=== PATIENT | male | born 1970 | race African-American/Black ===

== ENCOUNTER 2020-03-25 07:06 | Inpatient (IN) | payer MEDICARE ==
[~2020-03-25] VITALS: Ht 182.9 cm; Wt 100.5 kg
[2020-03-25] MEDS ORDERED: NITROGLYCERIN 2% OINT 1 GM PKT TOP ONE (07:30)
[2020-03-25] MEDS ORDERED: CARVEDILOL 12.5 MG TAB PO ONE (07:30)
[2020-03-25 07:42] LABS: BASOPHILS # (AUTO) 0.1 (0.0-0.1); BASOPHILS % 0.8 % (0.0-1.0); EOSINOPHILS # (AUTO) 0.2 (0.0-0.4); EOSINOPHILS % 3.6 % (0.0-6.0); HEMOGLOBIN 11.5 g/dL (14.0-18.0); LYMPHOCYTES # (AUTO) 1.3 (1.0-3.2); LYMPHOCYTES % 19.5 % (18.0-39.1); MEAN CORPUSCULAR HEMOGLOBIN 26.3 pg (28-32); MEAN CORPUSCULAR HGB CONC 31.1 g/dL (31-35); MEAN CORPUSCULAR VOLUME 84.5 fL (81-99); MONOCYTES # (AUTO) 0.5 (0.2-0.8); MONOCYTES % 7.8 % (4.4-11.3); NEUTROPHILS # (AUTO) 4.5 (2.1-6.9); NEUTROPHILS % 68.1 % (38.7-80.0); PLATELET COUNT 206 x10e3/uL (140-360); RED BLOOD COUNT 4.38 x10e6/uL (4.3-5.7); RED CELL DISTRIBUTION WIDTH 13.4 % (11.7-14.4)
[2020-03-25] MEDS ORDERED: ONDANSETRON HCL INJ 2MG/ML 2ML 2 MG/ML VIAL IV PRN (07:45)
[2020-03-25 07:54] LABS: INR 0.96; PARTIAL THROMBOPLASTIN TIME 30.9 seconds (23.8-35.5); PROTHROMBIN TIME 13.3 seconds (11.9-14.5)
[2020-03-25 08:01] LABS: ALBUMIN 2.7 g/dL (3.5-5.0); ALBUMIN/GLOBULIN RATIO 0.8 (0.8-2.0); ANION GAP 25.7 mmol/L (8-16); CREATININE, SERUM 21.28 mg/dL (0.72-1.25); POTASSIUM 4.7 mmol/L (3.5-5.1)
[2020-03-25 08:07] LABS: CREATINE KINASE MB 9.9 ng/mL (0-5.0)
[2020-03-25 08:08] LABS: CALCIUM 6.6 mg/dL (8.4-10.2)
--- NOTE | 2020-03-25 08:32 | Emergency Department Note ---
History of Present Illnes History of Present Illness Chief Complaint: Respiratory History of Present Illness This is a 49 year old male PATIENT IN FROM HOME WITH COMPLAINTS OF SHORTNESS OF BREATH AND DRY COUGH STARTING LAST NIGHT; STATES IS HERE FROM [place] AND IS A DIALYSIS PATIENT. PATIENT HAS BEEN DOING MANUAL PERITONEAL DIALYSIS BUT IT IS NOT WORKING (SAYS IN PAST WHEN HE DOES MANUAL DWELLS INSTEAD OF BEING ON MACHINE, HE GETS VOLUME OVERLOADED). PATIENT ALERT AND ORIENTED, RESP EVEN AND NONLABORED, APPEARS IN NO DISTRESS, DENIES CHEST PAIN. 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 Any updates have been documented here. Past Medical History Recent Fever: No Clinical Suspicion of Infectio: No New/Unexplained Change in Ment: No Past Medical History: Hypertension, Diabetes, Cancer, ESRD, Hemodyalisis, Hyperlipedemia Other Medical History: RENAL CANCER Past Surgical History: Cataract Removal Other Surgery: LEFT NEPHRECTOMY RUE FISTULA Social History Smoking Cessation: Never Smoker Counseling Performed: No Alcohol Use: None Any Illegal Drug Use: No TB Exposure/Symptoms: No Physically hurt or threatened: No Family History Family history of heart diseas: No Other Any Pre-Existing Lines (PICC,: Yes Review of Systems Review of Systems Constitutional: Reports no symptoms; Denies chills, Denies fever EENTM: Reports no symptoms Cardiovascular: Reports no symptoms Respiratory: Reports as per HPI Gastrointestinal: Reports no symptoms Genitourinary: Reports no symptoms Musculoskeletal: Reports no symptoms Integumentary: Reports no symptoms Neurological: Reports no symptoms Psychological: Reports no symptoms Endocrine: Reports no symptoms Hematological/Lymphatic: Reports no symptoms Physical Exam Related Data Allergies: Coded Allergies: No Known Allergies (Unverified , 03/25/20) Triage Vital Signs Vital Signs Date Time Temp Pulse Resp B/P (MAP) Pulse Ox O2 Delivery O2 Flow Rate FiO2 03/25/20 07:09 98.6 94 24 199/112 97 Room Air Vital signs reviewed: Yes Physical Exam CONSTITUTIONAL Constitutional: Present well-developed, Present well-nourished HENT HENT: Present normocephalic, Present atraumatic, Present oropharynx clear/moist, Present nose normal HENT L/R: Present left ext ear normal, Present right ext ear normal EYES Eyes: Reports PERRL, Reports conjunctivae normal NECK Neck: Present ROM normal PULMONARY Pulmonary: Present respiratory distress (MILD TACHYPNEA), Present rales (BIBASILAR) CARDIOVASCULAR Cardiovascular: Present regular rhythm, Present heart sounds normal, Present capillary refill normal, Present normal rate, Present LLE edema (2+), Present RLE edema (2+) GASTROINTESTINAL Abdominal: Present soft, Present nontender, Present bowel sounds normal GENITOURINARY Genitourinary: Present exam deferred SKIN Skin: Present warm, Present dry MUSCULOSKELETAL Musculoskeletal: Present ROM normal NEUROLOGICAL Neurological: Present alert, Present oriented x 3, Present no gross motor or sensory deficits PSYCHOLOGICAL Psychological: Present mood/affect normal, Present judgement normal Exam - additional comments RIGHT UPPER ARM HD FISTULA, GOOD THRILL & BRUIT Results Laboratory Result Diagram: 03/25/20 0720 03/25/20 0720 Laboratory Laboratory Tests Test 03/25/20 07:40 03/25/20 07:20 White Blood Count 6.65 x10e3/uL (4.8-10.8) Red Blood Count 4.38 x10e6/uL (4.3-5.7) Hemoglobin 11.5 g/dL (14.0-18.0) Hematocrit 37.0 % (38.2-49.6) Mean Corpuscular Volume 84.5 fL (81-99) Mean Corpuscular Hemoglobin 26.3 pg (28-32) Mean Corpuscular Hemoglobin Concent 31.1 g/dL (31-35) Red Cell Distribution Width 13.4 % (11.7-14.4) Platelet Count 206 x10e3/uL (140-360) Neutrophils (%) (Auto) 68.1 % (38.7-80.0) Lymphocytes (%) (Auto) 19.5 % (18.0-39.1) Monocytes (%) (Auto) 7.8 % (4.4-11.3) Eosinophils (%) (Auto) 3.6 % (0.0-6.0) Basophils (%) (Auto) 0.8 % (0.0-1.0) Neutrophils # (Auto) 4.5 (2.1-6.9) Lymphocytes # (Auto) 1.3 (1.0-3.2) Monocytes # (Auto) 0.5 (0.2-0.8) Eosinophils # (Auto) 0.2 (0.0-0.4) Basophils # (Auto) 0.1 (0.0-0.1) Absolute Immature Granulocyte (auto 0.01 x10e3/uL (0-0.1) Prothrombin Time 13.3 seconds (11.9-14.5) Prothromb Time International Ratio 0.96 Activated Partial Thromboplast Time 30.9 seconds (23.8-35.5) Sodium Level 139 mmol/L (136-145) Potassium Level 4.7 mmol/L (3.5-5.1) Chloride Level 100 mmol/L (98-107) Carbon Dioxide Level 18 mmol/L (22-29) Anion Gap 25.7 mmol/L (8-16) Blood Urea Nitrogen 79 mg/dL (7-26) Creatinine 21.28 mg/dL (0.72-1.25) Estimat Glomerular Filtration Rate 3 ML/MIN (60-) BUN/Creatinine Ratio 4 (6-25) Glucose Level 139 mg/dL (74-118) Calcium Level 6.6 mg/dL (8.4-10.2) Total Bilirubin 0.3 mg/dL (0.2-1.2) Aspartate Amino Transf (AST/SGOT) 13 IU/L (5-34) Alanine Aminotransferase (ALT/SGPT) 20 IU/L (0-55) Alkaline Phosphatase 57 IU/L (40-150) Creatine Kinase 924 IU/L (30-200) Creatine Kinase MB 9.90 ng/mL (0-5.0) Troponin I 0.054 ng/mL (0-0.300) Total Protein 6.3 g/dL (6.5-8.1) Albumin 2.7 g/dL (3.5-5.0) Globulin 3.6 g/dL (2.3-3.5) Albumin/Globulin Ratio 0.8 (0.8-2.0) Lab results reviewed: Yes Imaging Imaging results reviewed: Yes Procedures 12 Lead ECG Interpretation ECG Interpretation : ECG: ECG 1 Delivery Truck Driver: Interpreted by ED physician Date: Mar 25, 2020 Time: 07:23 Rhythm: sinus rhythm Rate: normal (88) QRS axis: normal ST segments normal: Yes T waves flattening: I, aVL Clinical Impression: abnormal ECG Additional Comments PROLONGED QT Assessment & Plan Medical Decision Making MDM ESRD ON PD DOING MANUAL DWELLS DUE TO BEING DISPLACED FROM [place] FOR HURRICANE JIAN PRESENTS WITH SOB, LIKELY VOLUME OVERLOADED - CHECK CBC, CHEM, ECG, CARDIAC ENZYMES, CXR, COVID SWAB - R/O STEMI/NSTEMI, CHF, VOLUME OVERLOAD, PNEUMONIA, COVID19 Reassessment Reassessment ADMIT TO ON-CALL DR REESE, SPOKE WITH BIBIANA - WILL DO HD TODAY Assessment & Plan Final Impression: (1) Volume overload (2) Dyspnea (3) ESRD (end stage renal disease) on dialysis Depart Disposition: ADMITTED Last Vital Signs Date Time Temp Pulse Resp B/P (MAP) Pulse Ox O2 Delivery O2 Flow Rate FiO2 03/25/20 08:07 178/111 03/25/20 08:07 100 03/25/20 07:09 98.6 24 97 Room Air Medications in the ED Carvedilol 12.5 mg ONCE ONCE PO Last administered on 03/25/20 08:07; Admin Dose 12.5 MG; Start 03/25/20 at 07:30; Stop 03/25/20 at 07:31; Status DC Nitroglycerin 1 gm ONCE ONCE TOP Last administered on 03/25/20at 08:07; Admin Dose 1 GM; Start 03/25/20 at 07:30; Stop 03/25/20 at 07:31; Status DC Ondansetron HCl 4 mg Q4H PRN IV NAUSEA AND VOMITING; Start 03/25/20 at 07:45; Stop 04/24/20 at 07:44 JEREMY BRAVO MD Mar 25, 2020 08:32
--- NOTE | 2020-03-25 09:19 | Diagnostic Imaging Report ---
EXAMINATION: CHEST SINGLE (PORTABLE) INDICATION: SOB LIKELY VOLUME OVERLOAD COMPARISON: None FINDINGS: TUBES and LINES: None. LUNGS: Normal lung volumes. There is diffuse prominent interstitial lung markings. No focal consolidation. PLEURA: No pleural effusion or pneumothorax. HEART AND MEDIASTINUM: The heart is mildly enlarged. Mediastinal contours otherwise within normal limits. BONES AND SOFT TISSUES: No acute osseous lesion. Soft tissues are unremarkable. UPPER ABDOMEN: No free air under the diaphragm. IMPRESSION: Cardiomegaly with interstitial pulmonary edema. No focal consolidation. Signed by: Darlene Gresham MD on 03/25/2020 9:16 AM
[2020-03-25 10:30] VITALS: BP 167/95
--- NOTE | 2020-03-25 10:30 | NUR ---
PATIENT RECEIVED FROM ER PER WHEEL CHAIR. ALERT AND VERBALLY RESPONSIVE. ABLE TO TRANSFER SELF TO BED. DENIES PAIN AT THIS TIME. SKIN WARM AND DRY TO TOUCH, RESPIRATION EVEN AND UNLABORED. ABDOMEN SOFT AND NON DISTENDED. TELEMETRY BOX [address] BED IN LOWER POSITION AND LOCKED. CALL LIGHT AT REACH, INSTRUCTED TO CALL FOR ASSISTANCE NEEDED.
[2020-03-25 11:49] VITALS: BP 167/95
[2020-03-25] MEDS ORDERED: CARVEDILOL12.5 MG PO (12:33)
[2020-03-25] MEDS: CARVEDILOL 12.5 MG TAB PO SCH ×2 (13:13→17:21)
--- NOTE | 2020-03-25 13:14 | NUR ---
PATIENT ON DIALYSIS, CONSENT SIGNED. IN BED RESTING WITH NO S/S OF DISTRESS.
--- NOTE | 2020-03-25 15:30 | NUR ---
PATIENT NOTED WITH ELEVATED B/P. MD NOTIFIED, NEW ORDER RECEIVED.
[2020-03-25 15:31] LABS: CREATINE KINASE MB 8.5 ng/mL (0-5.0)
[2020-03-25 16:00] VITALS: BP 153/93
--- NOTE | 2020-03-25 16:01 | NUR ---
Renal Consult HPI - 49 yo M with PMH of ESRD on PD admitted through ER for concerns of volume overload. he has mild SOB and and legs edema. patient says he has problems whenever he is started on manual exchange in his PD ROS - negative unless mentioned in HPI Vitals - BP 178/111 mmhg. HR 100/min, T 98, RR 20 Exam - Gen - not in acute distress HENT - no LAD Chest - CTAB heart - RRR Ext - race edema labs - labs from today reviewed A & P - - ESRD on daily PD - Hypertension - volume overload plan - - continue PD as prescription - will start on home dose of antihypertensive. will up titrate Coreg as needed
[2020-03-25] MEDS ORDERED: DOCUSATE SODIUM 100 MG CAP PO PRN (17:45)
[2020-03-25] MEDS ORDERED: MELATONIN 5 MG TABLET PO PRN (17:45)
[2020-03-25] MEDS ORDERED: TRAMADOL HCL 50 MG TAB PO PRN (17:45)
--- NOTE | 2020-03-25 19:00 | NUR ---
RECEIVED PATIENT IN BEDSIDE SHIFT REPORT. PATIENT RESTING IN BED AT THIS TIME. PERITONEAL DIALYSIS NURSE JUST STARTED PD. PATIENT TOLERATING WELL. COMPLAINTS OF A HEADACHE, WILL PROVIDE MEDICATION. NO S&S OF DISTRESS NOTED. BED LOCKED IN LOWEST POSITION, SIDE RAILS UPX2, CALL LIGHT IN REACH.
[2020-03-25 20:08] VITALS: BP 160/94
[2020-03-25] MEDS: FAMOTIDINE 20 MG/2 ML VIAL IV SCH (20:54)
[2020-03-25] MEDS: ACETAMINOPHEN 325 MG TAB PO PRN (20:54)
[2020-03-25 21:31] LABS: CREATINE KINASE MB 10.2 ng/mL (0-5.0)
[2020-03-25 21:39] VITALS: BP 160/94
[2020-03-25] MEDS: HYDRALAZINE HCL 20 MG/ML VIAL IV PRN (23:40)
[2020-03-26] VITALS (9 sets, daily range): BP systolic 165–192; BP diastolic 90–108
[2020-03-26] MEDS: HEPARIN SOD (PORCINE) 5,000 UNIT/ML VIAL SC SCH ×3 (00:20→21:16)
--- NOTE | 2020-03-26 03:09 | NUR ---
PATIENT CALLED STATING HE WAS HAVING TROUBLE CATCHING HIS BREATH. SPO2 @ 93% ON RA WHILE LAYING ALMOST FLAT. SAT PATIENT UP TO 45 DEGREES, SPO2 INCREASED TO 95%. APPLIED 2L O2 VIA NC, SPO2 INCREASED TO 98-99%. PATIENT BREATHING EASIER AT THIS TIME. WILL CONTINUE TO MONITOR.
[2020-03-26] MEDS: HYDRALAZINE HCL 20 MG/ML VIAL IV PRN ×2 (05:30→23:33)
[2020-03-26 06:18] LABS: BASOPHILS % 0.6 % (0.0-1.0); EOSINOPHILS # (AUTO) 0.1 (0.0-0.4); EOSINOPHILS % 1.4 % (0.0-6.0); HEMATOCRIT 34.3 % (38.2-49.6); HEMOGLOBIN 11.2 g/dL (14.0-18.0); LYMPHOCYTES # (AUTO) 0.6 (1.0-3.2); LYMPHOCYTES % 8.4 % (18.0-39.1); MEAN CORPUSCULAR HEMOGLOBIN 27.6 pg (28-32); MEAN CORPUSCULAR HGB CONC 32.7 g/dL (31-35); MEAN CORPUSCULAR VOLUME 84.5 fL (81-99); MONOCYTES # (AUTO) 0.5 (0.2-0.8); MONOCYTES % 7.3 % (4.4-11.3); NEUTROPHILS # (AUTO) 5.7 (2.1-6.9); PLATELET COUNT 187 x10e3/uL (140-360); RED BLOOD COUNT 4.06 x10e6/uL (4.3-5.7); RED CELL DISTRIBUTION WIDTH 13.4 % (11.7-14.4)
[2020-03-26 06:48] LABS: ALBUMIN 2.7 g/dL (3.5-5.0); ALBUMIN/GLOBULIN RATIO 0.7 (0.8-2.0); ANION GAP 26.2 mmol/L (8-16); CREATININE, SERUM 19.58 mg/dL (0.72-1.25); POTASSIUM 4.2 mmol/L (3.5-5.1)
[2020-03-26 06:52] LABS: CALCIUM 6.8 mg/dL (8.4-10.2)
[2020-03-26 07:09] LABS: CREATINE KINASE MB 9.3 ng/mL (0-5.0)
[2020-03-26] MEDS: FAMOTIDINE 20 MG/2 ML VIAL IV SCH ×2 (08:12→21:14)
[2020-03-26] MEDS: CARVEDILOL 12.5 MG TAB PO SCH ×2 (08:13→16:34)
[2020-03-26] MEDS: ONDANSETRON HCL INJ 2MG/ML 2ML 2 MG/ML VIAL IV PRN ×2 (08:29→16:59)
[2020-03-26] MEDS ORDERED: AMLODIPINE BESY10 MG PO (08:39)
[2020-03-26] MEDS ORDERED: SEVELAMER CARB800 MG PO (08:39)
[2020-03-26] MEDS ORDERED: ATORVASTATIN CA20 MG PO (08:39)
[2020-03-26] MEDS ORDERED: OMEPRAZOLE40 MG PO (08:39)
[2020-03-26] MEDS ORDERED: CALCIUM CARBONATE 500 MG CHEWABLE TABS PO ONE ×2 (09:30→17:15)
[2020-03-26] MEDS: CALCITRIOL 0.25 MCG CAP PO SCH (09:54)
[2020-03-26] MEDS: ACETAMINOPHEN 325 MG TAB PO PRN (12:36)
--- NOTE | 2020-03-26 13:02 | NUR ---
Renal Progress Note - Subjective - Chart reviewed, events noted. felt some discomfort last night while breathing but denies that it was SOB. Vitals - BP 184/108 mmhg. HR 94/min, T 99.7, RR 20 Exam - Gen - not in acute distress HENT - no LAD Chest - CTAB heart - RRR Ext - trace edema labs - labs from today reviewed A & P - - ESRD on daily PD - Hypertension - uncontrolled - volume overload plan - - continue PD as prescription. No change from prescription from yesterday - will start on home dose of antihypertensive. will up titrate Coreg as needed - starting on Losartan today
[2020-03-26] MEDS ORDERED: LOSARTAN POTASSIUM 25 MG TAB PO SCH (13:15)
[2020-03-26] MEDS: CALCIUM CARBONATE 500 MG CHEWABLE TABS PO SCH (16:34)
--- NOTE | 2020-03-26 17:30 | NUR ---
Notified Dr. Lucia of pt elevated temp. No new orders received at this time.
[2020-03-26] MEDS ORDERED: DEXTROSE 50% SYRINGE 50 ML IV PRN (18:00)
--- NOTE | 2020-03-26 19:15 | NUR ---
RECEIVED BEDSIDE SHIFT REPORT FROM MORNING NURSE. PT ALERT AND ORIENTED, LYING IN BED HOB 45 DEGREES. DENIES PAIN AT THIS TIME. PD CATHETER IN PLACE AND DIALYZING INFORMED TO CALL IF HE NEEDS NEEDS ASSISTANCE, CALL LIGHT WITHIN REACH.
--- NOTE | 2020-03-26 19:23 | Progress Note ---
DATE: 03/26/2020 Medicine Progress Note SUBJECTIVE: The patient reportedly is breathing much better after peritoneal dialysis. 1.6 L removed from PD. PHYSICAL EXAMINATION: VITAL SIGNS: Temperature is 99.7, pulse 91, respiratory rate is 20, blood pressure was 165/90, and pulse ox 100% on room air. GENERAL: Not in acute distress. Alert and oriented x3. Cooperative on examination. HEENT: Head; normocephalic, atraumatic. Eyes; pupils are equal, round, and reactive to light bilaterally. Extraocular movements intact bilaterally. Throat; no evidence of erythema or exudates in the posterior pharynx. Has poor dentition. NECK: Supple. Good range of motion. PULMONARY: Clear to auscultation bilaterally. No wheezing, no rales, no rhonchi, no crackles appreciated. CARDIOVASCULAR: Positive S1 and S2. No murmurs, rubs, or gallops appreciated. ABDOMEN: Soft, nondistended, and nontender to palpation. Bowel sounds present. MUSCULOSKELETAL: Strength is 5/5 throughout. No evidence of any muscle deficits on examination. No weakness appreciated. NEUROLOGIC: Cranial nerve II through XII grossly intact. No evidence of any neurological deficits on exam. SKIN: Intact. Warm to touch. Good cap refill. PSYCHIATRIC: Normal affect and mood. EXTREMITIES: No edema. Good range of motion throughout. LABORATORY DATA: Labs show white count 6.9, hemoglobin 11, hematocrit 34, and platelets of 187. His chemistry; sodium 136, potassium 4.2, chloride 98, bicarb 16, anion gap of 26, BUN 75, and creatinine 19.5. His glucose is 266. Calcium is 6.8. Troponins were negative. Albumin 2.7. Coronavirus not detected. IMAGING STUDIES: Showed some cardiomegaly, interstitial pulmonary edema. No focal consolidation. IMPRESSION: 1. End-stage renal disease, on peritoneal dialysis. 2. Hypertension. 3. Shortness of breath secondary to pulmonary edema. 4. Secondary hyperparathyroidism. PLAN: At this time, the patient received PD last night and will receive it today as well. Still reports some shortness of breath. His home medications were resumed. I will go ahead and increase the losartan to 100 mg daily due to his blood pressure being elevated. He will be on heparin for DVT prophylaxis. Renal diet. We will continue with Coreg and add increased dose of losartan for his blood pressure. Plan of care discussed with the patient and nursing staff. As for his hypocalcemia, it is being managed by Nephrology. MD FREEMAN Fink/MELLISA /[id number]
[2020-03-26] MEDS: ATORVASTATIN 20 MG TAB PO SCH (21:14)
[2020-03-26] MEDS: INSULIN LISPRO 100 UNIT/1 ML 3ML VIAL SQ SCH (21:16)
[2020-03-27] VITALS (8 sets, daily range): BP systolic 164–187; BP diastolic 88–94
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
[2020-03-27] MEDS: ACETAMINOPHEN 325 MG TAB PO PRN ×2 (03:10→12:15)
--- NOTE | 2020-03-27 05:05 | NUR ---
Spoke with Dr. Lucia regarding Pt's change in health condition, elevated BP 187/92, temp 100.9, and shaking. Pt c/o SHIN previously resolving. Dr. Israel ordered BCx2, UC, consult Dr. Mckinney, and start IV Cefepime 1g every 24hrs.
[2020-03-27] MEDS: CEFEPIME 1GM/NS 0.9% 50 ML 50 ML IV SCH (06:10)
[2020-03-27] MEDS ORDERED: SODIUM CHLORIDE 0.9% 250ML 250 ML ONE (06:16)
--- NOTE | 2020-03-27 06:28 | NUR ---
CONSULT LEFT WITH [facility] FOR DR. LORD.
[2020-03-27 07:01] LABS: BASOPHILS % 0.5 % (0.0-1.0); EOSINOPHILS # (AUTO) 0.1 (0.0-0.4); EOSINOPHILS % 0.9 % (0.0-6.0); HEMATOCRIT 32.5 % (38.2-49.6); HEMOGLOBIN 10.2 g/dL (14.0-18.0); LYMPHOCYTES # (AUTO) 0.9 (1.0-3.2); MEAN CORPUSCULAR HEMOGLOBIN 26.2 pg (28-32); MEAN CORPUSCULAR HGB CONC 31.4 g/dL (31-35); MEAN CORPUSCULAR VOLUME 83.5 fL (81-99); MONOCYTES # (AUTO) 0.7 (0.2-0.8); NEUTROPHILS # (AUTO) 5.7 (2.1-6.9); NEUTROPHILS % 77.1 % (38.7-80.0); PLATELET COUNT 190 x10e3/uL (140-360); RED BLOOD COUNT 3.89 x10e6/uL (4.3-5.7); RED CELL DISTRIBUTION WIDTH 13.7 % (11.7-14.4)
--- NOTE | 2020-03-27 07:10 | NUR ---
PATIENT IS AWAKE, ALERT, AND IN STABLE CONDITION WITH NO S/S OF RESPIRATORY DISTRESS. NO PAIN VOICED. PATIENT RECEIVED PERITONEAL DIALYSIS- ACCESS TO LLQ. LIMB ALERT TO LEFT UPPER EXTREMITY D/T FISTULA. TELEMETRY APPLIED. 02 APPLIED AT 2L NC. CALL LIGHT IS WITHIN REACH, PATIENT INSTRUCTED TO CALL FOR ASSISTANCE NEEDED.
[2020-03-27 07:28] LABS: ANION GAP 23.7 mmol/L (8-16); CALCIUM 7.2 mg/dL (8.4-10.2); CREATININE, SERUM 19.06 mg/dL (0.72-1.25); POTASSIUM 3.7 mmol/L (3.5-5.1)
[2020-03-27] MEDS: INSULIN LISPRO 100 UNIT/1 ML 3ML VIAL SQ SCH ×4 (07:30→21:00)
[2020-03-27] MEDS: HEPARIN SOD (PORCINE) 5,000 UNIT/ML VIAL SC SCH ×2 (08:11→20:19)
[2020-03-27] MEDS: LOSARTAN POTASSIUM 25 MG TAB PO SCH (08:12)
[2020-03-27] MEDS: CALCIUM CARBONATE 500 MG CHEWABLE TABS PO SCH ×2 (08:12→16:18)
[2020-03-27] MEDS: SEVELAMER CARBONATE 800 MG TAB PO SCH ×3 (08:12→17:30)
[2020-03-27] MEDS: CALCITRIOL 0.25 MCG CAP PO SCH (08:12)
[2020-03-27] MEDS: CARVEDILOL 12.5 MG TAB PO SCH ×2 (08:12→16:18)
[2020-03-27] MEDS: ONDANSETRON HCL INJ 2MG/ML 2ML 2 MG/ML VIAL IV PRN (08:40)
[2020-03-27] MEDS: FAMOTIDINE 20 MG/2 ML VIAL IV SCH ×2 (08:40→20:02)
[2020-03-27] MEDS: HYDRALAZINE HCL 20 MG/ML VIAL IV PRN (12:14)
--- NOTE | 2020-03-27 12:40 | NUR ---
RECEIVED CALLBACK FROM DR. REESE REGARDING PATIENT'S BP AND HEADACHE- NEW ORDERS RECEIVED TO MAKE PATIENT INPATIENT AND FOR NORCO 5MG PO Q6H PRN.
[2020-03-27] MEDS ORDERED: HYDROCODONE/APAP 5MG-325MG TAB PO PRN (12:45)
--- NOTE | 2020-03-27 18:31 | Diagnostic Imaging Report ---
EXAMINATION: Head CT HISTORY: Headaches, dyspnea, ESRD COMPARISON: None. TECHNIQUE: Helical axial images of the head were obtained. Reformatted coronal and sagittal images from the axial data. Dose modulation, iterative reconstruction, and/or weight based adjustment of the mA/kV was utilized to reduce the radiation dose to as low as reasonably achievable. Image quality: Motion/streaking artifact limits the evaluation of the skull base and posterior cranial fossa. FINDINGS: Parenchyma: 1. No abnormal densities. 2. No mass or hemorrhage. No CT evidence of acute territorial vascular insult. Extra-axial spaces:No abnormal density. No extra-axial fluid collections Brain volume: Normal for age. Ventricles: No hydrocephalus or displacement. Arteries: No density suggestive of thrombus. Dural sinuses: No abnormal density. Foramen magnum: No mass, Chiari malformation, or basilar invagination. Sella: No obvious mass. Paranasal/mastoid sinuses: Imaged portions unremarkable. Skull/Scalp: No lytic or blastic lesions. No fractures. Nonspecific swelling of the scalp soft tissues, may be related to anasarca, given ESRD. IMPRESSION: No intracranial abnormalities, particularly no hemorrhage or cortical infarcts. Signed by: Dr. Lexus Verma M.D. on 03/27/2020 6:28 PM
--- NOTE | 2020-03-27 19:13 | NUR ---
PATIENT IN STABLE CONDITION WITH NO S/S OF RESPIRATORY DISTRESS. NO PAIN VOICED. PATIENT CONNECTED TO PERITONEAL DIALYSIS AT 1850. CALL LIGHT IS WITHIN REACH OF PATIENT- PATIENT INSTRUCTED TO CALL FOR ASSISTANCE NEEDED. BEDSIDE SHIFT REPORT GIVEN TO ONCOMING NURSE.
--- NOTE | 2020-03-27 19:30 | NUR ---
Received change of shift report from AM nurse. Walking rounds completed.
--- NOTE | 2020-03-27 19:59 | Consultation ---
DATE OF CONSULTATION: HISTORY OF PRESENT ILLNESS: Mr. Hurst comes in with shortness of breath, 49-year-old male, who has history of end-stage renal disease, he was on peritoneal dialysis. comes in visit family. While he was here, he became short of breath, came to emergency room with no fever, no chills, no nausea, no vomiting. The patient was admitted. He had a fever of 100.9, so I was asked to see him. He is currently lying in bed. He is having some headache at the present time, but otherwise he denies any cough, fever, chills or abdominal pain. The patient is currently on Tylenol, Renvela, Zofran, Pepcid, Coreg. He was started on cefepime. LABORATORY DATA: His white count 7.4, hemoglobin 10.2 and hematocrit 32. His sodium 137, potassium 3.7, creatinine of 19.06. The patient had chest x-ray which showed no focal consolidation. PHYSICAL EXAMINATION: GENERAL: He is currently alert, oriented, pleasant, stable, currently afebrile. HEENT: Normocephalic. NECK: Supple. CHEST: Clear bilateral. HEART: S1, S2. ABDOMEN: Soft. Bowel sounds present. EXTREMITIES: No edema. SKIN: No rash. IMPRESSION: Fever in a patient who comes in with shortness of breath but chest x-ray is negative. Workup is negative so far. Sepsis is suspected. He does have physical examination, I do not see any sign of ascites. We will send the fluid for culture and sensitivity and cell count and diff. In the meantime, continue cefepime, recheck CBC, recheck Chem panel. MD ELIUD Love/MELLISA /[id number]
[2020-03-27] MEDS: ATORVASTATIN 20 MG TAB PO SCH (20:02)
[2020-03-28] VITALS (7 sets, daily range): BP systolic 157–178; BP diastolic 80–92
--- NOTE | 2020-03-28 02:24 | Progress Note ---
DATE: 03/27/2020 Medicine Progress Note SUBJECTIVE: The patient last night had a temperature of 100.9. Several cultures have been collected. Antibiotics have been initiated. LABORATORY FINDINGS: Show white count platelets of 190. Chemistry, sodium 137, potassium 3.7, chloride 90, bicarb 19, anion gap of 23. BUN 16, creatinine 19, glucose 223. Blood cultures pending. DIAGNOSTIC STUDIES: CT of the brain was found to be negative. PHYSICAL EXAMINATION: VITAL SIGNS: Temperature is 98.3, T-max 100.9, pulse 77, respiratory rate is 20, blood pressure is 168/92, pulse ox 100% on room air. GENERAL: Not in acute distress. Alert and oriented x3. He is cooperative on examination. PULMONARY: Clear to auscultation bilaterally. No wheezing, no rales, no rhonchi, no crackles appreciated. CARDIOVASCULAR: Positive S1 and S2. No murmurs, rubs, or gallops appreciated. GI: Abdomen is soft, nondistended, and nontender to palpation. Bowel sounds present. MUSCULOSKELETAL: Strength is 5/5 throughout. No evidence of any muscle deficits on examination. SKIN: Intact. Warm to touch. Good cap refill. PSYCHIATRIC: Normal affect and mood. EXTREMITIES: No edema. Good range of motion throughout. IMPRESSION: 1. End-stage renal disease, on peritoneal dialysis. 2. Hypertension. 3. Shortness of breath, secondary to pulmonary edema -- resolved. 4. Secondary hyperparathyroidism. 5. Fever. PLAN: At this time, the patient is receiving dialysis and is being managed by Nephrology. His blood pressure is elevated, which I will go ahead and add nifedipine XL 30 mg daily, starting in the morning. He did have a fever . He is on IV antibiotics. He has no tenderness to the abdomen. ID has been consulted. CONSULTANTS: ID and Pulmonary. He is on heparin for DVT prophylaxis. MD FREEMAN Fink/MODL /[id number]
[2020-03-28] MEDS: CEFEPIME 1GM/NS 0.9% 50 ML 50 ML IV SCH (05:08)
[2020-03-28 06:48] LABS: ANION GAP 23.7 mmol/L (8-16); CALCIUM 7.2 mg/dL (8.4-10.2); CREATININE, SERUM 18.72 mg/dL (0.72-1.25); POTASSIUM 3.7 mmol/L (3.5-5.1)
[2020-03-28] MEDS: HYDRALAZINE HCL 20 MG/ML VIAL IV PRN (07:00)
[2020-03-28] MEDS: INSULIN LISPRO 100 UNIT/1 ML 3ML VIAL SQ SCH ×4 (07:30→21:00)
--- NOTE | 2020-03-28 07:30 | NUR ---
PATIENT IS IN STABLE CONDITION WITH NO S/S OF RESPIRATORY DISTRESS- PATIENT DENIES PAIN. TELEMETRY APPLIED. CALL LIGHT IS WITHIN REACH, PATIENT INSTRUCTED TO CALL FOR ASSISTANCE NEEDED.
[2020-03-28] MEDS: FAMOTIDINE 20 MG/2 ML VIAL IV SCH ×2 (08:25→21:00)
[2020-03-28] MEDS: CALCIUM CARBONATE 500 MG CHEWABLE TABS PO SCH ×2 (08:25→17:17)
[2020-03-28] MEDS: CARVEDILOL 12.5 MG TAB PO SCH ×2 (08:25→17:17)
[2020-03-28] MEDS: SEVELAMER CARBONATE 800 MG TAB PO SCH ×3 (08:25→17:17)
[2020-03-28] MEDS: NIFEDIPINE CR 30 MG TAB PO SCH (08:25)
[2020-03-28] MEDS: LOSARTAN POTASSIUM 25 MG TAB PO SCH (08:25)
[2020-03-28] MEDS: CALCITRIOL 0.25 MCG CAP PO SCH (08:25)
[2020-03-28] MEDS: HEPARIN SOD (PORCINE) 5,000 UNIT/ML VIAL SC SCH ×2 (08:25→21:00)
[2020-03-28] MEDS: ONDANSETRON HCL INJ 2MG/ML 2ML 2 MG/ML VIAL IV PRN (08:30)
[2020-03-28 09:42] LABS: BODY FLUID APPEARANCE SL.CLOUDY; BODY FLUID COLOR COLORLESS; BODY FLUID TYPE PERITONEAL
[2020-03-28 09:43] LABS: RBC,BODY FLUID 0 cells/uL; WBC,BODY FLUID 0 cells/uL
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
--- NOTE | 2020-03-28 16:19 | Progress Note ---
DATE: SUBJECTIVE: Mr. Hurst is doing better. He had fever yesterday. REVIEW OF SYSTEMS: HEENT: Negative. PULMONARY: Negative. CARDIAC: Negative. PHYSICAL EXAMINATION: GENERAL: He is currently alert and oriented. VITAL SIGNS: Stable. He had low fever. HEENT: He is not icteric. NECK: Supple. CHEST: Clear. HEART: S1 and S2. ABDOMEN: Soft. Bowel sounds present. EXTREMITIES: No edema. SKIN: No rash. IMPRESSION: Fever, concerned about peritonitis. The patient is currently on cefepime. Await blood cultures. Await peritoneal fluid. Further recommendations to follow depending on blood cultures finding. MD ELIUD Love/MELLISA /[id number]
--- NOTE | 2020-03-28 19:06 | NUR ---
PATIENT IS IN STABLE CONDITION WITH NO S/S OF RESPIRATORY DISTRESS. PATIENT DENIES PAIN. TELEMETRY APPLIED. PATIENT RECEIVING PERITONEAL DIALYSIS AT THIS TIME. CALL LIGHT IS WITHIN REACH, PATIENT INSTRUCTED TO CALL FOR ASSISTANCE NEEDED. REPORT GIVEN TO ONCOMING NURSE.
--- NOTE | 2020-03-28 19:12 | NUR ---
Received change of shift report from AM nurse. Walking rounds completed.
[2020-03-28] MEDS: ATORVASTATIN 20 MG TAB PO SCH (21:00)
[2020-03-29] VITALS (11 sets, daily range): BP systolic 132–184; BP diastolic 78–102
--- NOTE | 2020-03-29 01:02 | NUR ---
Patient receiving periteal dialysis. No c/o at this time. Continue monitor.
--- NOTE | 2020-03-29 01:56 | Progress Note ---
DATE: 03/28/2020 Medicine Progress Note SUBJECTIVE: The patient is doing well today with no complaints. No overnight events. Blood pressure is still elevated, which we are working on adjustment. PHYSICAL EXAMINATION: VITAL SIGNS: Temperature is 98.1, pulse 74, respiratory rate is 21, blood pressure 164/80, and pulse ox 94% on room air. GENERAL: Not in acute distress. Alert and oriented x3. Cooperative on examination. HEENT: Head; normocephalic, atraumatic. Eyes; pupils are equal, round, and reactive to light bilaterally. Extraocular movements intact bilaterally. NECK: Supple. PULMONARY: Clear to auscultation bilaterally. No wheezing, no rales, no rhonchi, no crackles appreciated. CARDIOVASCULAR: Positive S1 and S2. No murmurs, rubs, or gallops appreciated. ABDOMEN: Soft, nondistended, and nontender to palpation. Bowel sounds present. MUSCULOSKELETAL: Strength is 5/5 throughout. No evidence of any muscle deficits on examination. No weakness appreciated. NEUROLOGIC: Cranial nerve II through XII grossly intact. No evidence of any neurological deficits on exam. SKIN: Intact. Warm to touch. Good cap refill. PSYCHIATRIC: Normal affect and mood. EXTREMITIES: No edema. Good range of motion throughout. LABORATORY DATA: Show white count 7.4, hemoglobin 10.2, hematocrit is 32.5, platelets of 190. Chemistry; sodium 139, potassium 3.7, chloride glucose is 198, calcium is 7.2. MICROBIOLOGY: Wound cultures, blood culture no growth to-date. Urine cultures, no growth. IMAGING STUDIES: Nothing new. IMPRESSION: 1. End-stage renal disease, on peritoneal dialysis. 2. Hypertension. 3. Shortness of breath secondary to pulmonary edema-improving. 4. Secondary hyperparathyroidism. 5. Fever. PLAN: At this time, still receiving PE by Nephrology. He is doing much better now. I did adjust his antihypertensive medications to see if that will help. I will go ahead and add nicardipine XL to twice a day. He is on IV antibiotics. Cultures so far no growth to-date. negative. Follow with ID recommendations. Consultants Id and Pulmonary. Heparin for DVT prophylaxis. MD FREEMAN Fink/MELLISA /[id number]
[2020-03-29] MEDS: HYDRALAZINE HCL 20 MG/ML VIAL IV PRN ×2 (02:06→15:43)
[2020-03-29] MEDS: CEFEPIME 1GM/NS 0.9% 50 ML 50 ML IV SCH (05:15)
[2020-03-29 06:17] LABS: BASOPHILS % 0.8 % (0.0-1.0); EOSINOPHILS # (AUTO) 0.2 (0.0-0.4); HEMATOCRIT 35.8 % (38.2-49.6); HEMOGLOBIN 11.5 g/dL (14.0-18.0); LYMPHOCYTES # (AUTO) 0.8 (1.0-3.2); LYMPHOCYTES % 16.2 % (18.0-39.1); MEAN CORPUSCULAR HEMOGLOBIN 27.4 pg (28-32); MEAN CORPUSCULAR HGB CONC 32.1 g/dL (31-35); MEAN CORPUSCULAR VOLUME 85.4 fL (81-99); MONOCYTES # (AUTO) 0.6 (0.2-0.8); MONOCYTES % 12.5 % (4.4-11.3); NEUTROPHILS # (AUTO) 3.2 (2.1-6.9); NEUTROPHILS % 66.3 % (38.7-80.0); PLATELET COUNT 183 x10e3/uL (140-360); RED BLOOD COUNT 4.19 x10e6/uL (4.3-5.7); RED CELL DISTRIBUTION WIDTH 13.5 % (11.7-14.4)
[2020-03-29 06:39] LABS: ANION GAP 24.7 mmol/L (8-16); CALCIUM 7.4 mg/dL (8.4-10.2); CREATININE, SERUM 18.44 mg/dL (0.72-1.25); POTASSIUM 3.7 mmol/L (3.5-5.1)
--- NOTE | 2020-03-29 07:00 | NUR ---
BEDSIDE SHIFT REPORT RECEIVED FROM THE DEBLOCKER RN. EDUCATED PT ABOUT FALL PRECAUTIONS. PT VERBALIZED UNDERSTANDING. CALL LIGHT WITH IN EASY REACH. BED IS LOW AND LOCKED. SIDE RAILS X2. ALL SAFETY MEASURES IN PLACE. PT DENIES NEEDS AT THIS TIME.
[2020-03-29] MEDS: INSULIN LISPRO 100 UNIT/1 ML 3ML VIAL SQ SCH ×4 (08:30→21:04)
[2020-03-29] MEDS: CARVEDILOL 12.5 MG TAB PO SCH ×3 (08:45→17:17)
[2020-03-29] MEDS: SEVELAMER CARBONATE 800 MG TAB PO SCH ×3 (08:45→16:26)
[2020-03-29] MEDS: LOSARTAN POTASSIUM 25 MG TAB PO SCH (08:46)
[2020-03-29] MEDS: CALCIUM CARBONATE 500 MG CHEWABLE TABS PO SCH ×2 (08:47→16:26)
[2020-03-29] MEDS: NIFEDIPINE CR 30 MG TAB PO SCH (08:47)
[2020-03-29] MEDS: CALCITRIOL 0.25 MCG CAP PO SCH (08:48)
[2020-03-29] MEDS: FAMOTIDINE 20 MG/2 ML VIAL IV SCH (08:58)
[2020-03-29] MEDS: HEPARIN SOD (PORCINE) 5,000 UNIT/ML VIAL SC SCH ×2 (10:00→21:04)
--- NOTE | 2020-03-29 14:48 | NUR ---
PHYSICAL EXAMINATION: VITAL SIGNS: Temperature is 98.1, pulse 74, respiratory rate is 21, blood pressure 164/80, and pulse ox 94% on room air. GENERAL: Not in acute distress. Alert and oriented x3. Cooperative on examination. HEENT: Head; normocephalic, atraumatic. Eyes; pupils are equal, round, and reactive to light bilaterally. Extraocular movements intact bilaterally. NECK: Supple. PULMONARY: Clear to auscultation bilaterally. No wheezing, no rales, no rhonchi, no crackles appreciated. CARDIOVASCULAR: Positive S1 and S2. No murmurs, rubs, or gallops appreciated. ABDOMEN: Soft, nondistended, and nontender to palpation. Bowel sounds present. MUSCULOSKELETAL: Strength is 5/5 throughout. No evidence of any muscle deficits on examination. No weakness appreciated. NEUROLOGIC: Cranial nerve II through XII grossly intact. No evidence of any neurological deficits on exam. SKIN: Intact. Warm to touch. Good cap refill. PSYCHIATRIC: Normal affect and mood. EXTREMITIES: No edema. Good range of motion throughout. LABORATORY DATA: Show white count 7.4, hemoglobin 10.2, hematocrit is 32.5, platelets of 190. Chemistry; sodium 139, potassium 3.7, glucose is 198, calcium is 7.2. MICROBIOLOGY: Wound cultures, blood culture no growth to-date. Urine cultures, no growth. IMAGING STUDIES: Nothing new.
[2020-03-29] MEDS: FAMOTIDINE 20 MG TAB PO SCH (16:26)
--- NOTE | 2020-03-29 16:59 | Progress Note ---
DATE: SUBJECTIVE: Mr. Hurst is doing well. There is no new complaint. All his cultures came back negative. Urine culture, blood culture, peritoneal fluid came back negative. His white count is normal. PHYSICAL EXAMINATION: GENERAL: He is currently alert, oriented. VITAL SIGNS: Stable, currently afebrile. HEENT: He is not icteric. NECK: Supple. CHEST: Clear. HEART: S1, S2. ABDOMEN: Soft. Bowel sounds present. EXTREMITIES: No edema. SKIN: No rash. IMPRESSION: 1. Fever, on admission, could be viral. All workup is negative. 2. End-stage renal disease, on dialysis. 3. Hypertension, can discontinue antibiotic, can look into discharge planning from Infectious Disease point of view. MD ELIUD Love/MELLISA /[id number]
--- NOTE | 2020-03-29 19:15 | NUR ---
RECEIVED BEDSIDE SHIFT REPORT FROM PREVIOUS NURSE. CALL LIGHT WITHIN REACH. PATIENT IN BED.
--- NOTE | 2020-03-29 19:23 | NUR ---
BEDSIDE SHIFT REPORT GIVEN TO THE FOOD BEVERAGE MANAGER RN. PT DENIED FURTHER NEEDS.
[2020-03-29] MEDS: ATORVASTATIN 20 MG TAB PO SCH (21:02)
[2020-03-30] VITALS (7 sets, daily range): BP systolic 147–178; BP diastolic 80–98
--- NOTE | 2020-03-30 03:01 | Progress Note ---
DATE: 03/29/2020 Nephrology Progress Note SUBJECTIVE: The patient doing well today with no complaints. OBJECTIVE: VITAL SIGNS: Afebrile, pulse 75, respiratory rate is 18, blood pressure 137/83, pulse ox 95% on room air. GENERAL: In no acute distress. Alert and oriented x3. Cooperative on examination. HEENT: Head is normocephalic and atraumatic. Eyes; pupils are equal, round, and reactive to light bilaterally. Extraocular movements are intact bilaterally. PULMONARY: Clear to auscultation bilaterally. No wheezing, no rales, no rhonchi, no crackles appreciated. CARDIOVASCULAR: Positive S1 and S2. No murmurs, rubs, or gallops. ABDOMEN: Soft, nondistended, and nontender to palpation. Bowel sounds present. MUSCULOSKELETAL: Strength 5/5 throughout. LABORATORY FINDINGS: Show white count 4.8, hemoglobin 11, hematocrit 35, platelets of 130. Chemistry; sodium 139, potassium 3.7, chloride 99, bicarb 19, anion gap of 24, BUN 58, creatinine 18, glucose is 237 this morning, now 94. Calcium is 7.4. Coronavirus not detected. Microbiology; urine cultures, no growth. Abdominal fluid cultures, no growth. Gram stain of peritoneal fluid no growth after one day. No organisms noted. The recent blood cultures were negative. IMAGING STUDIES: Nothing new. IMPRESSION: 1. End-stage renal disease, on peritoneal dialysis. 2. Hypertension. 3. Shortness of breath secondary to pulmonary edema-resolved. 4. Secondary hyperparathyroidism. 5. Fever-resolved. PLAN: At this time, peritoneal dialysis per Nephrology. He is breathing well with no issues. His blood pressure is much improved with nifedipine XL. All his cultures were no growth. Continue with IV antibiotics. ID, nephrology are following. Potential discharge tomorrow if the patient is able to being discharged. MD FREEMAN Fink/MODL /[id number]
[2020-03-30] MEDS: CEFEPIME 1GM/NS 0.9% 50 ML 50 ML IV SCH (05:41)
--- NOTE | 2020-03-30 07:00 | NUR ---
BEDSIDE SHIFT REPORT RECEIVED FROM THE SPRINKLING TRUCK DRIVER RN. EDUCATED PT ABOUT FALL PRECAUTIONS. PT VERBALIZED UNDERSTANDING. CALL LIGHT WITH IN EASY REACH. INSTRUCTED PT TO USE CALL LIGHT FOR ALL THE NEEDS. BED IS LOW AND LOCKED. SIDE RAILS X2. PT DENIES NEEDS AT THIS TIME.
--- NOTE | 2020-03-30 07:34 | NUR ---
GAVE BEDSIDE SHIFT REPORT TO ONCOMING NURSE. CALL LIGHT WITHIN REACH. PATIENT IN BED. PATIENT IN NO PAIN. HOURLY ROUNDING PERFORMED
[2020-03-30 07:46] LABS: BASOPHILS % 0.9 % (0.0-1.0); EOSINOPHILS # (AUTO) 0.3 (0.0-0.4); EOSINOPHILS % 5.6 % (0.0-6.0); HEMATOCRIT 36.4 % (38.2-49.6); HEMOGLOBIN 11.4 g/dL (14.0-18.0); LYMPHOCYTES # (AUTO) 1.1 (1.0-3.2); LYMPHOCYTES % 23.8 % (18.0-39.1); MEAN CORPUSCULAR HEMOGLOBIN 26.3 pg (28-32); MEAN CORPUSCULAR HGB CONC 31.3 g/dL (31-35); MEAN CORPUSCULAR VOLUME 84.1 fL (81-99); MONOCYTES # (AUTO) 0.5 (0.2-0.8); MONOCYTES % 10.5 % (4.4-11.3); NEUTROPHILS # (AUTO) 2.8 (2.1-6.9); PLATELET COUNT 213 x10e3/uL (140-360); RED BLOOD COUNT 4.33 x10e6/uL (4.3-5.7); RED CELL DISTRIBUTION WIDTH 13.2 % (11.7-14.4)
[2020-03-30] MEDS: SEVELAMER CARBONATE 800 MG TAB PO SCH ×3 (08:03→15:48)
[2020-03-30] MEDS: NIFEDIPINE CR 30 MG TAB PO SCH (08:04)
[2020-03-30] MEDS: CALCIUM CARBONATE 500 MG CHEWABLE TABS PO SCH ×2 (08:04→15:48)
[2020-03-30] MEDS: CALCITRIOL 0.25 MCG CAP PO SCH (08:04)
[2020-03-30] MEDS: LOSARTAN POTASSIUM 25 MG TAB PO SCH (08:04)
[2020-03-30] MEDS: FAMOTIDINE 20 MG TAB PO SCH ×2 (08:04→15:48)
[2020-03-30] MEDS: CARVEDILOL 12.5 MG TAB PO SCH ×2 (08:04→15:48)
[2020-03-30 08:10] LABS: ANION GAP 22.5 mmol/L (8-16); CALCIUM 7.1 mg/dL (8.4-10.2); CREATININE, SERUM 17.97 mg/dL (0.72-1.25); POTASSIUM 3.5 mmol/L (3.5-5.1)
[2020-03-30] MEDS: INSULIN LISPRO 100 UNIT/1 ML 3ML VIAL SQ SCH ×3 (08:23→15:46)
[2020-03-30] MEDS: HEPARIN SOD (PORCINE) 5,000 UNIT/ML VIAL SC SCH (08:39)
--- NOTE | 2020-03-30 14:40 | NUR ---
infectious disease progress note. The patient currently alert oriented does not seem to be in acute distress patient with no new complaints. Her physical examination alert oriented with stable currently afebrile extremities optic neck supple chest clear heart murmur abdomen soft prospered extremity edema skin rash So far workup is negative for infection Patient could be discharged home Impression fever resolved. End-stage disease on peritoneal dialysis. Stable
[2020-03-30] MEDS ORDERED: ONDANSETRON HCL 4 MG ORAL DISINTEGRATING TAB PO PRN (15:30)
--- NOTE | 2020-03-30 15:40 | NUR ---
LUCY TO D/C PT PER DR. REESE, DR. LORD AND DR. ROLDAN.
--- NOTE | 2020-03-30 16:04 | NUR ---
PT DISCHARGED HOME SAFELY WITH FAMILY MEMBER. TELE AND IV REMOVED. TIP INTACT. DRESSING APPLIED. NO RX PER DR. REESE. D/C INSTRUCTIONS GIVEN AND PT VERBALIZED UNDERSTANDING. PT ESCORTED BY THE TECH VIA WHEEL CHAIR TO THE PRIVATE AUTO AT THE FRONT ENTRANCE. PT DENIED FURTHER NEEDS.
--- NOTE | 2020-03-31 05:52 | Discharge Summary ---
FINAL DISCHARGE DIAGNOSES: 1. Pulmonary edema with shortness of breath secondary to underdialyzed. 2. End-stage renal disease, on peritoneal dialysis. 3. Hypertension. 4. Secondary hyperparathyroidism. 5. Fever-resolved. CONSULTANTS: Infectious Disease, Nephrology. PHYSICAL EXAMINATION: VITAL SIGNS: Temperature is 98, pulse 76, respiratory rate is 18, blood pressure 153/92, and pulse ox 100% on room air. LABORATORY DATA: White count 4.6, hemoglobin 11.4, hematocrit 36, and platelets of 213, coagulation PT 13, INR 0.8, PTT 31. Chemistry; sodium 139, potassium 3.5, chloride 99, bicarb 21, anion gap of 22, BUN is 52, creatinine 17.9. Glucose is 247, calcium is 7.1. LFTs within normal range. Troponins were all negative. MICROBIOLOGY: Blood cultures were negative. fluid was negative. Urine culture was negative. IMAGING STUDIES: Chest x-ray cardiomegaly interstitial pulmonary. No focal consolidation. CT brain, no intracranial abnormalities, particularly no hemorrhage or cortical infarcts. HOSPITAL COURSE: A 49-year-old male, comes into the ED with complaints of shortness of breath. The patient has bilateral pulmonary edema on chest x-ray. The patient is an ESRD patient, on peritoneal dialysis. Of note, seems to have had good dialysis. The patient was admitted and Nephrology was consulted. The patient has several treatments of peritoneal dialysis with much improvement of the shortness of breath. In fact, he was not on oxygen. He has had good ultrafiltration. The patient had a low-grade fever while here in the hospital stay, prompting ID consultation. The patient maintained on IV antibiotic therapy. Cultures were performed, all found to be negative. White count normal. Afebrile prior to being discharge to home. I spoke with ID, recommends no antibiotics as the patient is currently doing well. The patient has been cleared for discharge by all consultants. The patient was back to normal baseline. The patient's blood pressure was elevated, but medications were adjusted accordingly. On the day of discharge, vital signs were stable, labs reviewed and stable. The patient is seen and evaluated and examined thoroughly on the day of discharge. No other complaints. The patient verbalized understanding and agree with the plan of care to follow up accordingly as an outpatient with primary care physician in 1 week and normal dialysis schedule appointment. MEDICATIONS: See med reconciliation form. DISPOSITION: Home. CONDITION: Stable. DIET: Heart healthy. In the event of any worsening symptoms, the patient was advised to come back to the ED for further evaluation. Discharge summary took greater than 35 minutes. MD FREEMAN Fink/MODRohit /[id number]
== END 2020-03-30 16:59 | disposition home or self-care (01) | DRG 682 ==
LOC: ER 07:55 → ERHOLD 08:14 → MED/SURG3 10:22 → OBSVTOIN 03-27 12:41
PROVIDERS: ADMIT Internal Medicine; ATTEND Internal Medicine
PROC: 3E1M39Z Irrigation of Peritoneal Cavity using Dialysate, Percutaneous Approach (ICD-10-PCS; principal; 2020-03-27)
DX: I13.11 Hypertensive heart and chronic kidney disease without heart failure, with stage 5 chronic kidney disease, or end stage renal disease (principal); N18.6 End stage renal disease; N25.81 Secondary hyperparathyroidism of renal origin; E87.70 Fluid overload, unspecified; E11.22 Type 2 diabetes mellitus with diabetic chronic kidney disease; Z99.2 Dependence on renal dialysis; Z11.59 Encounter for screening for other viral diseases
CPT/HCPCS: 36415; 70450; 71045; 80048; 80053; 82550; 82553; 82948; 84484; 85025; 85610; 85730; 87040; 87071; 87075; 87086; 87205; 89051; 93005; 99284; G0378; J0360; J0692; J1644; J2405; J7050; U0002